=== PATIENT | female | born 1955 | race Caucasian/White ===

== ENCOUNTER 2017-05-08 16:43 | Inpatient (IN) ==
[2017-05-08] MEDS ORDERED: SALINE LOCK IV FLUID XX ONE (17:25)
[2017-05-08] MEDS ORDERED: VANCOMYCIN IV PER PHARMACY MISC SCH (17:25)
[2017-05-08] MEDS ORDERED: LOVENOX SUBQ SCH (17:25)
--- NOTE | 2017-05-08 18:23 | Diag Imaging Result Doc PS360 ---
HAND COMPLETE RIGHT - 05/08/2017 INDICATION: dog bite TECHNIQUE: Three views COMPARISON: None FINDINGS: Bones are intact and normally aligned. Joint spaces and soft tissues are clear. IMPRESSION: Negative exam. Electronically signed by Bo Mcnulty 05/08/2017 6:21 PM
[2017-05-08 18:37] LABS: BASO% 0.2 % (0.0-0.8); EOS# 0.01 X1000 (0.0-0.7); EOS% 0.1 % (0.0-10.0); HEMATOCRIT 41.2 % (37.0-47.0); HEMOGLOBIN 14.7 g/dL (12.0-16.0); IMM GRAN# 0.05 X1000 (0.0-0.04); IMM GRAN% 0.3 % (0.0-0.5); LYMPH# 1.05 X1000 (1.2-3.4); LYMPH% 5.4 % (20.5-51.1); MANUAL DIFF NEEDED? YES; MCH 34.3 PG (27-31); MCHC 35.7 g/dL (33-37); MONO% 5.7 % (1.7-9.3); MPV 11.3 FL (7.4-10.4); NEUT% 88.3 % (42.2-75.2); PLT 221 X1000 (130-400); RBC 4.29 XMIL (4.2-5.4)
[2017-05-08 18:39] LABS: AGAP 15; ALBUMIN 4.2 g/dL (3.5-5.0); ALKALINE PHOSPHATASE 102 U/L (32-104); BUN 16 mg/dL (8-22); CALCIUM 8.8 mg/dL (8.8-10.2); CHLORIDE 98 mmol/L (98-107); COSMO 279; GOT 21 U/L (10-30); GPT 26 U/L (10-36); POTASSIUM 3.8 mmol/L (3.5-5.1); SODIUM 137 mmol/L (136-145); TCO2 24 mmol/L (25-35); TOTAL BILIRUBIN 1.58 mg/dL (0.20-1.00); TOTAL PROTEIN 7.2 g/dL (6.3-8.3)
[2017-05-08] MEDS: ZOSYN 4.5 GM in NS 100 ML IV SCH (18:45)
[2017-05-08 19:21] LABS: LYMPHS 10 % (21-51); MONO 2 % (1-9)
[2017-05-08] MEDS: HUMULIN R SUBQ SCH ×2 (19:39→21:15)
[2017-05-08] MEDS ORDERED: TENORMIN PO SCH (21:00)
[2017-05-08] MEDS ORDERED: VANCOMYCIN 1.5 GM in NS 500 ML IV SCH (21:00)
[2017-05-08] MEDS: GLUCOTROL PO SCH (21:14)
[2017-05-09] MEDS: HUMULIN R SUBQ SCH ×2 (00:50→05:41)
[2017-05-09] MEDS: ZOSYN 4.5 GM in NS 100 ML IV SCH ×2 (02:29→09:07)
[2017-05-09] MEDS ORDERED: TYLENOL PO PRN (02:31)
[2017-05-09 06:17] LABS: MANUAL DIFF NEEDED? NO
[2017-05-09 06:24] LABS: BASO% 0.2 % (0.0-0.8); EOS# 0.06 X1000 (0.0-0.7); EOS% 0.4 % (0.0-10.0); HEMATOCRIT 37.8 % (37.0-47.0); HEMOGLOBIN 13.2 g/dL (12.0-16.0); IMM GRAN# 0.04 X1000 (0.0-0.04); IMM GRAN% 0.3 % (0.0-0.5); LYMPH# 3.01 X1000 (1.2-3.4); LYMPH% 21.3 % (20.5-51.1); MCH 33.9 PG (27-31); MCHC 34.9 g/dL (33-37); MCV 97.2 FL (81-99); MONO# 1.06 X1000 (0.11-0.59); MONO% 7.5 % (1.7-9.3); MPV 11.2 FL (7.4-10.4); NEUT% 70.3 % (42.2-75.2); PLT 207 X1000 (130-400); RBC 3.89 XMIL (4.2-5.4)
[2017-05-09 06:33] LABS: HEMOGLOBIN A1C 6.7 % (4.8-6.0)
[2017-05-09 06:42] LABS: AGAP 8; ALBUMIN 3.5 g/dL (3.5-5.0); ALKALINE PHOSPHATASE 81 U/L (32-104); BUN 13 mg/dL (8-22); CALCIUM 8.7 mg/dL (8.8-10.2); CHLORIDE 107 mmol/L (98-107); COSMO 283; GOT 16 U/L (10-30); GPT 19 U/L (10-36); MAGNESIUM 2.2 mg/dL (1.5-2.7); POTASSIUM 3.5 mmol/L (3.5-5.1); SODIUM 142 mmol/L (136-145); TCO2 27 mmol/L (25-35); TOTAL BILIRUBIN 2.32 mg/dL (0.20-1.00)
[2017-05-09] MEDS: GLUCOTROL PO SCH (09:06)
[2017-05-09 09:35] VITALS: BP 117/63
== END 2017-05-09 10:55 | disposition home or self-care (01) ==
LOC: DIRADM 16:43 → 4N 17:11
PROVIDERS: ADMIT Internal Medicine Pulmonary Disease; ATTEND Internal Medicine Pulmonary Disease